=== PATIENT | female | born 1950 | race Caucasian/White ===

== ENCOUNTER → 2018-05-01 | Outpatient (CLI) | payer OTHER ==
[~2018-05-01] MED LIST: GADOBUTROL 10 ML VIAL IVP ONE
== END ==
LOC: FIMAGING 04-30 13:23
PROVIDERS: ATTEND Ophthalmology
DX: H53.2 Diplopia (principal)
CPT/HCPCS: 70553; A9585; 82565-PO

== ENCOUNTER → 2018-05-31 | Outpatient (CLI) | payer OTHER | LOC: FIMAGING 17:57 | DX: H05.00 Unspecified acute inflammation of orbit (principal) | CPT/HCPCS: 70543; A9585 ==

== ENCOUNTER → 2018-06-09 | Outpatient (CLI) | payer OTHER ==
[~2018-06-09] MED LIST changes: -GADOBUTROL 10 ML VIAL IVP ONE; +IOPAMIDOL (ISOVUE-300) 100 ML BTL ONE
== END ==
LOC: FIMAGING 12:54
DX: H05.89 Other disorders of orbit (principal); K76.9 Liver disease, unspecified; M85.89 Other specified disorders of bone density and structure, multiple sites; D30.00 Benign neoplasm of unspecified kidney
CPT/HCPCS: 71270; 74178; Q9967

== ENCOUNTER 2018-07-12 18:30 | Inpatient (IN) | payer OTHER ==
[2018-07-12] MEDS ORDERED: NS 1,000 ML IV ONE (18:56)
--- NOTE | 2018-07-12 18:57 | EDPHY ---
H & P Stated Complaint: SOB/PE ON CTA TODAY Time Seen by Provider: 07/12/18 18:57 HPI/ROS: HPI CHIEF COMPLAINT: Pulmonary embolism on CT angiogram today. HISTORY OF PRESENT ILLNESS: This is a 67-year-old female presents to the emergency room, shortness of breath, patient reports to me she has been having shortness of breath for the past week. She had a CT angiogram today that showed a pulmonary embolism. Bilaterally. She presents emergency room stating that she has felt short of breath for the past week. She did increase her home oxygen from 2 L to 3-4 L. Past Medical History: Lung cancer, tumor behind left eye blood loss of vision, COPD Past Surgical History: No recent surgery Social History: Denies daily use drugs alcohol or tobacco use. Family History: Noncontributory ROS REVIEW OF SYSTEMS: 10 Systems were reviewed and negative with the exception of the elements mentioned in the history of present illness. Exam Constitutional nontoxic, elderly, triage nursing summary reviewed, vital signs reviewed, awake/alert. Eyes patient is loss of vision left eye due to a tumor. HENT normal inspection, atraumatic, moist mucus membranes, no epistaxis, neck supple/ no meningismus, no raccoon eyes. Respiratory clear to auscultation bilaterally, normal breath sounds, no respiratory distress, no wheezing. Cardiovascular rate normal, regular rhythm, no murmur, no edema, distal pulses normal. Gastrointestinal soft, non-tender, no rebound, no guarding, normal bowel sounds, no distension, no pulsatile mass. Genitourinary no CVA tenderness. Musculoskeletal no midline vertebral tenderness, full range of motion, no calf swelling, no tenderness of extremities, no meningismus, good pulses, neurovascularly intact. Skin pink, warm, & dry, no rash, skin atraumatic. Neurologic awake, alert and oriented x 3, AAOx3, moves all 4 extremities equally, motor intact, sensory intact, CN II-XII intact, normal cerebellar, normal vision, normal speech. Psychiatric normal mood/affect. Heme/Lymph/Immune no lymphadenopathy. Differential Diagnosis: Includes but is not limited to in a particular order pneumonia, bilateral pulmonary embolism, pulmonary infarct Medical Decision Making: Plan for this patient full conveyor monitor, supplemental oxygen, IV establishment, blood cultures, she is not on any anticoagulation. Will start on heparin infusion for P E. Patient need to be admitted the hospital. Re-evaluation: EKG interpretation by me on record in [facility] system. Impression time of EKG 1901, sinus tach 102 without any signs of acute ischemia. 1911: CT angiogram was reviewed from earlier today shows bilateral pulmonary emboli. Right lung infarct, right lung consolidation. 1953: Patient remains hemodynamically stable. Spoke with the hospitalist service for admission reason for admission PE, pneumonia. Patient has been given Rocephin and azithro, as well as started on heparin drip. Spoke with Dr. Anderson agrees to admit. Patient stable for PCU admission. Source: Patient - Personal History Current Tetanus Diphtheria and Acellular Pertussis (TDAP): Yes - Medical/Surgical History Hx Asthma: No Hx Chronic Respiratory Disease: Yes Hx Diabetes: Yes Hx Cardiac Disease: No Hx Renal Disease: No Hx Cirrhosis: No Hx Alcoholism: No Hx HIV/AIDS: No Hx Splenectomy or Spleen Trauma: No Other PMH: PE/COPD/PNA. ADENOCARCINOMA BEHIND EYE TUMOR - Social History Smoking Status: Current every day smoker Constitutional: Initial Vital Signs Temperature (C) 36.6 C 07/12/18 18:35 Heart Rate 111 H 07/12/18 18:35 Respiratory Rate 19 07/12/18 18:35 Blood Pressure 108/61 07/12/18 18:35 O2 Sat (%) 93 07/12/18 18:35 O2 Delivery Mode Nasal Cannula O2 (L/minute) 4 Allergies/Adverse Reactions: No Known Allergies Allergy (Unverified 07/12/18 18:34) Home Medications: Medication Instructions Recorded Acetaminophen [Tylenol 325mg (*)] 650 mg PO Q6 PRN 07/12/18 Citalopram [CeleXA] 20 mg PO HS 07/12/18 Ergocalciferol [Vitamin D2 (*)] 50,000 unit PO MCPHERSON@0900 07/12/18 oxyCODONE HCL [Oxycodone HCl] 5 - 10 mg PO Q4 PRN 07/12/18 Medical Decision Making - Data Points Laboratory Results: Laboratory Results 07/12/18 19:15 07/12/18 19:15 Medications Given: Albuterol/Ipratropium (Duoneb) 3 ml IH QID JUANITO Stop: 01/09/19 05:59 Last Admin: 07/13/18 10:10 Dose: 3 ml Citalopram Hydrobromide (Celexa) 20 mg PO HS JUANITO Stop: 01/08/19 22:29 Last Admin: 07/12/18 22:32 Dose: 20 mg Oxycodone HCl (Oxycodone Ir) 5 - 10 mg PO Q4 PRN PRN Reason: SEVERE PAIN Stop: 07/22/18 21:26 Last Admin: 07/13/18 10:35 Dose: 5 mg Discontinued Medications Sodium Chloride (Ns) 1,000 mls @ 0 mls/hr IV EDNOW ONE; Wide Open PRN Reason: Protocol Stop: 07/12/18 18:57 Last Admin: 07/12/18 19:34 Dose: 1,000 mls Heparin Sodium (Porcine) (Heparin 50 Units/Ml (Premix)) 500 mls @ 0 mls/hr IV EDNOW ONE; Per Protocol PRN Reason: Protocol Stop: 07/12/18 19:09 Last Admin: 07/12/18 19:42 Dose: 500 mls Azithromycin 500 mg/ Sodium (Chloride) 255 mls @ 255 mls/hr IV EDNOW ONE PRN Reason: Protocol Stop: 07/12/18 20:11 Last Admin: 07/12/18 20:19 Dose: 255 mls Ceftriaxone Sodium/Dextrose (Rocephin 1 Gm (Premix)) 50 mls @ 100 mls/hr IV EDNOW ONE PRN Reason: Protocol Stop: 07/12/18 19:41 Last Admin: 07/12/18 19:25 Dose: 50 mls Potassium Chloride (Klor-Con) 40 meq PO ONCE ONE PRN Reason: Protocol Stop: 07/13/18 09:46 Last Admin: 07/13/18 09:42 Dose: 40 meq Point of Care Test Results: Chemistry 07/12/18 19:07 POC Troponin I 0.08 ng/mL ng/mL (0.00-0.08) Departure - Departure Disposition: [facility] Acute Clinical Impression: Pulmonary embolism Qualifiers: Pulmonary embolism type: other Chronicity: acute Acute cor pulmonale presence: without acute cor pulmonale Qualified Code(s): I26.99 - Other pulmonary embolism without acute cor pulmonale Pneumonia Qualifiers: Pneumonia type: due to unspecified organism Laterality: bilateral Lung location : unspecified part of lung Qualified Code(s): J18.9 - Pneumonia, unspecified organism Condition: Fair
[2018-07-12] MEDS ORDERED: HEPARIN/DEXTROSE 500 ML IV ONE (19:08)
[2018-07-12] MEDS ORDERED: AZITHROMYCIN IV 500 MG in NS 250 ML IV ONE (19:12)
[2018-07-12 19:26] LABS: PLATELET COUNT 233 10^3/uL (150-400)
[2018-07-12 19:34] LABS: INR 1.24 (0.83-1.16); PROTIME(PATIENT) 15.8 SEC (12.0-15.0)
[2018-07-12] MEDS ORDERED: ACETAMINOPHEN 325 MG TAB PO PRN (19:55)
[2018-07-12] MEDS ORDERED: HEPARIN 10,000 UNIT/10 ML MDV (1,000 UNIT/ML) IVP PRN (19:55)
[2018-07-12] MEDS ORDERED: oxyCODONE IR 5 MG TAB PO PRN (19:55)
[2018-07-12] MEDS ORDERED: HYDROCODONE/APAP 5/325 TAB PO PRN (19:55)
[2018-07-12] MEDS ORDERED: HEPARIN/DEXTROSE 500 ML IV SCH (20:00)
[2018-07-12] MEDS ORDERED: CITALOPRAM 20 MG TAB ONE (22:28)
[2018-07-12] MEDS: CITALOPRAM 20 MG TAB PO SCH (22:32)
[2018-07-12] MEDS: oxyCODONE IR 5 MG TAB PO PRN (22:32)
--- NOTE | 2018-07-12 22:35 | CPEKG ---
Test Reason : OPEN Blood Pressure : / mmHG Vent. Rate : 102 BPM Atrial Rate : 102 BPM P-R Int : 165 ms QRS Dur : 075 ms QT Int : 343 ms P-R-T Axes : 077 059 050 degrees QTc Int : 447 ms Sinus tachycardia Probable left atrial enlargement Confirmed by Antelmo Ayon ([id number]) on 07/12/2018 10:34:23 PM Referred By: Confirmed By:Antelmo Ayon
[2018-07-12] MEDS ORDERED: ALBUTEROL 3 ML DEYVIAL IH PRN (23:12)
--- NOTE | 2018-07-12 23:12 | PDGENHP ---
History and Physical - Chief Complaint SOB - History of Present Illness 67 yo female with recent diagnosis of lung cancer presents to ED after CT at [facility] showed b/l PE. She was found to have lung cancer after she developed right eye pain and vision change and imaging revealed an orbital mass, biopsy of which revealed metastatic lesion from lung cancer. CT chest confirmed large mass posterior to the right hilum and right lung base with extensive osseous mets. Abdomen CT was suspicious for hepatic mets as well. She had an outpatient appointment with Dr. Callejas at [facility] today and on arrival was found to be hypoxic and tachycardic, thus was sent for CTA, which revealed b/l PE. She was sent to ED for admission. She admits to increasing shortness of breath over past few weeks. She has a h/o COPD and is followed by pulmonology. She recently tried to quit smoking and has been off cigarettes for a week. She normally uses 2 LPM O2, but has noticed over the past few days, she is requiring more O2. She also endorses weight loss and poor appetite. +cough, minimally productive. No fevers or chills. No chest pain. In the ED, a heparin drip is started. Blood cultures were drawn and she received IV ceftriaxone and azithromycin. She is admitted for further management. History Information - Allergies/Home Medication List Allergies/Adverse Reactions: No Known Allergies Allergy (Unverified 07/12/18 18:34) Home Medications: Acetaminophen [Tylenol 325mg (*)] 650 mg PO Q6 PRN 07/12/18 [Last Taken 07/11/18 ] Citalopram [CeleXA] 20 mg PO HS 07/12/18 [Last Taken 07/11/18] Ergocalciferol [Vitamin D2 (*)] 50,000 unit PO MCPHERSON@0900 07/12/18 [Last Taken Unknown] oxyCODONE HCL [Oxycodone HCl] 5 - 10 mg PO Q4 PRN 07/12/18 [Last Taken 07/12/18 16:00] I have personally reviewed and updated: family history, medical history, social history, surgical history - Past Medical History COPD Additional medical history: Chronic hypoxemic respiratory failure - 2 LPM baseline O2. Depression. 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 06/2018 - Surgical History Reports: appendectomy, hernia repair - Family History Positive for: cancer - Social History Smoking Status: Current every day smoker Alcohol Use: Occasionally Drug Use: None Additional social history: Lives independently, currently daughter is staying with her Review of Systems Review of Systems: ROS: 10pt was reviewed & negative except for what was stated in HPI & below Physical Exam Physical Exam: Temp Pulse Resp BP Pulse Ox 36.9 C 98 18 111/73 97 07/12/18 19:45 07/12/18 19:45 07/12/18 19:45 07/12/18 19:45 07/12/18 19:45 Constitutional: no apparent distress Eyes: PERRL Ears, Nose, Mouth, Throat: moist mucous membranes Cardiovascular: regular rate and rhythym Respiratory: no respiratory distress, reduced air movement, inspiratory crackles Gastrointestinal: normoactive bowel sounds, soft, non-tender abdomen Skin: warm Musculoskeletal: full muscle strength Neurologic: AAOx3 Psychiatric: interacting appropriately Lab Data & Imaging Review 07/12/18 19:15 07/12/18 19:15 WBC 11.97 10^3/uL (3.80-9.50) H 07/12/18 19:15 RBC 3.55 10^6/uL (4.18-5.33) L 07/12/18 19:15 Hgb 11.0 g/dL (12.6-16.3) L 07/12/18 19:15 Hct 32.8 % (38.0-47.0) L 07/12/18 19:15 MCV 92.4 fL (81.5-99.8) 07/12/18 19:15 MCH 31.0 pg (27.9-34.1) 07/12/18 19:15 MCHC 33.5 g/dL (32.4-36.7) 07/12/18 19:15 RDW 15.8 % (11.5-15.2) H 07/12/18 19:15 Plt Count 233 10^3/uL (150-400) 07/12/18 19:15 MPV 11.6 fL (8.7-11.7) 07/12/18 19:15 Neut % (Auto) Not Reported 07/12/18 19:15 Lymph % (Auto) Not Reported 07/12/18 19:15 [place] % (Auto) Not Reported 07/12/18 19:15 Eos % (Auto) Not Reported 07/12/18 19:15 Baso % (Auto) Not Reported 07/12/18 19:15 Nucleat RBC Rel Count Not Reported 07/12/18 19:15 Absolute Neuts (auto) Not Reported 07/12/18 19:15 Absolute Lymphs (auto) Not Reported 07/12/18 19:15 Absolute Monos (auto) Not Reported 07/12/18 19:15 Absolute Eos (auto) Not Reported 07/12/18 19:15 Absolute Basos (auto) Not Reported 07/12/18 19:15 Absolute Nucleated RBC Not Reported 07/12/18 19:15 Immature Gran % Not Reported 07/12/18 19:15 Seg Neutrophils % 76.0 % 07/12/18 19:15 Band Neutrophils % 4.0 % 07/12/18 19:15 Lymphocytes % 9.0 % 07/12/18 19:15 Monocytes % 7.0 % 07/12/18 19:15 Eosinophils % 1.0 % 07/12/18 19:15 Basophils % 0.0 % 07/12/18 19:15 Metamyelocytes % 0.0 % 07/12/18 19:15 Myelocytes % 3.0 % 07/12/18 19:15 Promyelocytes % 0.0 % 07/12/18 19:15 Blast Cells % 0.0 % 07/12/18 19:15 Immature Gran # Not Reported 07/12/18 19:15 Absolute Seg Neuts 9.10 10^/uL (1.70-6.50) H 07/12/18 19:15 Absolute Band Neuts 0.48 10^3/uL (0.00-0.70) 07/12/18 19:15 Absolute Lymphocytes 1.08 10^3/uL (1.00-3.00) 07/12/18 19:15 Absolute Monocytes 0.84 10^3/uL (0.30-0.80) H 07/12/18 19:15 Absolute Eosinophils 0.12 10^3/uL (0.03-0.40) 07/12/18 19:15 Absolute Basophils 0.00 10^3/uL (0.02-0.10) L 07/12/18 19:15 Absolute Metamyelocyte 0.00 10^3/mL (0.00-0.00) 07/12/18 19:15 Absolute Myelocytes 0.36 10^3/mL (0.00-0.00) H 07/12/18 19:15 Absolute Promyelocytes 0.00 10^3/uL (0.00-0.00) 07/12/18 19:15 Absolute Plasma Cells 0.00 10^3/uL (0.00-0.00) 07/12/18 19:15 Absolute Blast Cells 0.00 10^3/uL (0.00-0.00) 07/12/18 19:15 Plasma Cells % 0.0 % 07/12/18 19:15 Platelet Estimate ADEQUATE (ADEQ) 07/12/18 19:15 Polychromasia 1+ H 07/12/18 19:15 Microcytic Cells 1+ H 07/12/18 19:15 Oval Macrocytes 1+ H 07/12/18 19:15 PT 15.8 SEC (12.0-15.0) H 07/12/18 19:15 INR 1.24 (0.83-1.16) H 07/12/18 19:15 APTT 25.2 SEC (23.0-38.0) 07/12/18 19:15 VBG Lactic Acid 1.8 mmol/L (0.7-2.1) 07/12/18 19:15 Sodium 135 mEq/L (135-145) 07/12/18 19:15 Potassium 3.4 mEq/L (3.3-5.0) 07/12/18 19:15 Chloride 95 mEq/L (97-110) L 07/12/18 19:15 Carbon Dioxide 32 mEq/l (22-31) H 07/12/18 19:15 Anion Gap 8 mEq/L (8-16) 07/12/18 19:15 BUN 9 mg/dL (7-23) 07/12/18 19:15 Creatinine 0.6 mg/dL (0.6-1.0) 07/12/18 19:15 Estimated GFR > 60 07/12/18 19:15 Glucose 160 mg/dL (70-100) H 07/12/18 19:15 Calcium 9.1 mg/dL (8.5-10.4) 07/12/18 19:15 Magnesium 1.9 mg/dL (1.6-2.3) 07/12/18 19:15 Total Bilirubin 1.0 mg/dL (0.1-1.4) 07/12/18 19:15 Conjugated Bilirubin 0.4 mg/dL (0.0-0.5) 07/12/18 19:15 Unconjugated Bilirubin 0.6 mg/dL (0.0-1.1) 07/12/18 19:15 AST 27 IU/L (14-46) 07/12/18 19:15 ALT 33 IU/L (9-52) 07/12/18 19:15 Alkaline Phosphatase 294 IU/L (38-126) H 07/12/18 19:15 POC Troponin I 0.08 ng/mL (0.00-0.08) 07/12/18 19:07 NT-Pro-B Natriuret Pep 722 pg/mL (0-125) H 07/12/18 19:15 Total Protein 5.9 g/dL (6.3-8.2) L 07/12/18 19:15 Albumin 3.2 g/dL (3.5-5.0) L 07/12/18 19:15 Visualized and Interpreted Chest x-ray results: Yes Chest X-Ray results: infiltrate Visualized and Interpreted EKG results: Yes EKG Interpretation: Positive for: normal sinsus rhythm Assessment & Plan Assessment: Acute on chronic hypoxemic respiratory failure 2/2 acute b/l PE - R>L. Baseline O2 2 LPM, on 4 LPM here. No hypotension or evidence of right heart strain on EKG. 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
[2018-07-13] MEDS: IPRATROPIUM/ALBUTEROL 3 ML DEYVIAL IH SCH ×4 (06:10→20:51)
[2018-07-13 06:11] LABS: PLATELET COUNT 198 10^3/uL (150-400)
[2018-07-13] MEDS: oxyCODONE IR 5 MG TAB PO PRN ×6 (06:34→22:17)
[2018-07-13] MEDS ORDERED: PROTOCOL POTASSIUM 1 DOSE MISC PRN (08:21)
[2018-07-13] MEDS ORDERED: POTASSIUM CL 10 MEQ TAB PO ONE ×2 (09:14→09:45)
--- NOTE | 2018-07-13 09:52 | HOSPPROG ---
Hospitalist Progress Note Assessment/Plan: Acute on chronic hypoxemic respiratory failure 2/2 acute b/l PE - R>L. Baseline O2 2 LPM, on 4 LPM here. No hypotension or evidence of right heart strain on EKG. 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, extensive osseous mets and possible hepatic mets - s/p biopsy of right orbit with post-op swelling and blindness -oncology consultation this am -pain control, cont home oxycodone -Will place Palliative care consult given Stage 4 disease COPD - 2 LPM O2 at baseline, no e/o acute flare -duonebs QID plus prn albuterol nebs -no indication for steroids at this time Depression - cont SSRI Full code DVT PPLX - heparin Dispo - inpt, anticipate >48 hrs hospitalization for ongoing management of PE and lung cancer Subjective: Patient reports mild SOB this AM Objective: Vital Signs Temp Pulse Resp BP Pulse Ox 36.9 C 92 18 108/58 L 90 L 07/13/18 07:57 07/13/18 07:57 07/13/18 07:57 07/13/18 07:57 07/13/18 07:57 Laboratory Results 07/13/18 02:54 07/13/18 02:54 07/12/18 07/13/18 07/14/18 05:59 05:59 05:59 Intake Total 1504 Output Total 0 Balance 1504 PT 15.8 SEC (12.0-15.0) H 07/12/18 19:15 INR 1.24 (0.83-1.16) H 07/12/18 19:15 - Physical Exam Constitutional: no apparent distress Eyes: PERRL Ears, Nose, Mouth, Throat: moist mucous membranes Cardiovascular: regular rate and rhythym Respiratory: reduced air movement, rhonchi Gastrointestinal: normoactive bowel sounds, soft, non-tender abdomen Genitourinary: no bladder fullness Skin: warm Musculoskeletal: no muscle tenderness Neurologic: AAOx3 Psychiatric: interacting appropriately ICD10 Worksheet Patient Problems: Problems Problem Status Onset Pneumonia Acute Pulmonary embolism Acute
--- NOTE | 2018-07-13 13:48 | PDCONSULT ---
[facility] Note: Hematology Oncology consultation note Reason for consultation: New pulmonary emboli in the setting a non-small cell lung cancer Requesting provider: Dr. Bharath Quiroz History of present illness: Ana is a 67-year-old female with history of metastatic NSCLC who was admitted for pulmonary embolism. She initially presented in March of this year with symptoms of headache and double vision. She eventually had an MRI of the orbits in May of 2018 a demonstrated a mass in the left clivus. She had a left orbital MRI in May demonstrated an adenocarcinoma TTF 1 was faintly positive. She underwent CT of the chest that demonstrated a mass in the right lower lobe as well as metastatic disease to the bone. She continued to have decreased vision within the left eye and has completed palliative radiation. She has seen Dr. Callejas and the plan was initiating her on chemotherapy with carboplatin, pemetrexed and keytruda. Over the course of the last week she has had worsening of her baseline shortness of breath. She uses 2 L nasal cannula oxygen at home. Her shortness of breath continued. She had a CT of the chest done on 07/12/2018 a demonstrated bilateral PE embolism. She had no lower extremity edema. She was admitted and placed on anticoagulation. She also has been treated for possible pneumonia. 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 She does have a history of smoking. No alcohol. Family history: Sister with history of breast cancer. Mother with history of breast cancer. Father with heart disease. Allergies: No known drug allergy Medications: Reviewed in the electronic medical record Review of systems: 12 point review of systems obtained otherwise negative Physical examination Temp Pulse Resp BP Pulse Ox 36.6 C 121 H 16 95/50 L 93 07/13/18 11:24 07/13/18 11:24 07/13/18 11:24 07/13/18 11:24 07/13/18 11:24 O2 (L/minute) 4 General: Pleasant-appearing female appears in no acute distress HEENT: Oropharynx is clear 5 L nasal cannula, left eye with no vision. Right eye is intact. Pulmonary: Decreased breath sounds at the right base otherwise good air entry Cardiovascular: Regular in rhythm Abdomen: Soft nontender nondistended bowel sounds are present Skin: No skin lesions Lymph nodes: No lymphadenopathy Extremities: No cyanosis clubbing or edema Psych: Appropriate affect Neuro: Motor and sensation intact . WBC 9.52 10^3/uL (3.80-9.50) H 07/13/18 02:54 RBC 2.91 10^6/uL (4.18-5.33) L 07/13/18 02:54 Hgb 9.0 g/dL (12.6-16.3) L 07/13/18 02:54 Hct 26.7 % (38.0-47.0) L 07/13/18 02:54 MCV 91.8 fL (81.5-99.8) 07/13/18 02:54 MCH 30.9 pg (27.9-34.1) 07/13/18 02:54 MCHC 33.7 g/dL (32.4-36.7) 07/13/18 02:54 RDW 15.9 % (11.5-15.2) H 07/13/18 02:54 Plt Count 198 10^3/uL (150-400) 07/13/18 02:54 MPV 11.9 fL (8.7-11.7) H 07/13/18 02:54 Neut % (Auto) 75.3 % (39.3-74.2) H 07/13/18 02:54 Lymph % (Auto) 11.9 % (15.0-45.0) L 07/13/18 02:54 [place] % (Auto) 8.7 % (4.5-13.0) 07/13/18 02:54 Eos % (Auto) 1.2 % (0.6-7.6) 07/13/18 02:54 Baso % (Auto) 0.5 % (0.3-1.7) 07/13/18 02:54 Nucleat RBC Rel Count 0.0 % (0.0-0.2) 07/13/18 02:54 Absolute Neuts (auto) 7.17 10^3/uL (1.70-6.50) H 07/13/18 02:54 Absolute Lymphs (auto) 1.13 10^3/uL (1.00-3.00) 07/13/18 02:54 Absolute Monos (auto) 0.83 10^3/uL (0.30-0.80) H 07/13/18 02:54 Absolute Eos (auto) 0.11 10^3/uL (0.03-0.40) 07/13/18 02:54 Absolute Basos (auto) 0.05 10^3/uL (0.02-0.10) 07/13/18 02:54 Absolute Nucleated RBC 0.00 10^3/uL (0-0.01) 07/13/18 02:54 Immature Gran % 2.4 % (0.0-1.1) H 07/13/18 02:54 Seg Neutrophils % 76.0 % 07/12/18 19:15 Band Neutrophils % 4.0 % 07/12/18 19:15 Lymphocytes % 9.0 % 07/12/18 19:15 Monocytes % 7.0 % 07/12/18 19:15 Eosinophils % 1.0 % 07/12/18 19:15 Basophils % 0.0 % 07/12/18 19:15 Metamyelocytes % 0.0 % 07/12/18 19:15 Myelocytes % 3.0 % 07/12/18 19:15 Promyelocytes % 0.0 % 07/12/18 19:15 Blast Cells % 0.0 % 07/12/18 19:15 Immature Gran # 0.23 10^3/uL (0.00-0.10) H 07/13/18 02:54 Absolute Seg Neuts 9.10 10^/uL (1.70-6.50) H 07/12/18 19:15 Absolute Band Neuts 0.48 10^3/uL (0.00-0.70) 07/12/18 19:15 Absolute Lymphocytes 1.08 10^3/uL (1.00-3.00) 07/12/18 19:15 Absolute Monocytes 0.84 10^3/uL (0.30-0.80) H 07/12/18 19:15 Absolute Eosinophils 0.12 10^3/uL (0.03-0.40) 07/12/18 19:15 Absolute Basophils 0.00 10^3/uL (0.02-0.10) L 07/12/18 19:15 Absolute Metamyelocyte 0.00 10^3/mL (0.00-0.00) 07/12/18 19:15 Absolute Myelocytes 0.36 10^3/mL (0.00-0.00) H 07/12/18 19:15 Absolute Promyelocytes 0.00 10^3/uL (0.00-0.00) 07/12/18 19:15 Absolute Plasma Cells 0.00 10^3/uL (0.00-0.00) 07/12/18 19:15 Absolute Blast Cells 0.00 10^3/uL (0.00-0.00) 07/12/18 19:15 Plasma Cells % 0.0 % 07/12/18 19:15 Platelet Estimate ADEQUATE (ADEQ) 07/12/18 19:15 Polychromasia 1+ H 07/12/18 19:15 Microcytic Cells 1+ H 07/12/18 19:15 Oval Macrocytes 1+ H 07/12/18 19:15 PT 15.8 SEC (12.0-15.0) H 07/12/18 19:15 INR 1.24 (0.83-1.16) H 07/12/18 19:15 APTT 25.2 SEC (23.0-38.0) 07/12/18 19:15 Heparin Anti-Xa, Unfract 0.53 IU/mL (0.32-0.67) 07/13/18 08:15 VBG Lactic Acid 1.8 mmol/L (0.7-2.1) 07/12/18 19:15 Sodium 136 mEq/L (135-145) 07/13/18 02:54 Potassium 2.9 mEq/L (3.3-5.0) L 07/13/18 02:54 Chloride 100 mEq/L (97-110) 07/13/18 02:54 Carbon Dioxide 33 mEq/l (22-31) H 07/13/18 02:54 Anion Gap 3 mEq/L (8-16) L 07/13/18 02:54 BUN 6 mg/dL (7-23) L 07/13/18 02:54 Creatinine 0.5 mg/dL (0.6-1.0) L 07/13/18 02:54 Estimated GFR > 60 07/13/18 02:54 Glucose 150 mg/dL (70-100) H 07/13/18 02:54 Calcium 8.4 mg/dL (8.5-10.4) L 07/13/18 02:54 Magnesium 1.9 mg/dL (1.6-2.3) 07/12/18 19:15 Total Bilirubin 0.7 mg/dL (0.1-1.4) 07/13/18 02:54 Conjugated Bilirubin 0.4 mg/dL (0.0-0.5) 07/12/18 19:15 Unconjugated Bilirubin 0.6 mg/dL (0.0-1.1) 07/12/18 19:15 AST 21 IU/L (14-46) 07/13/18 02:54 ALT 33 IU/L (9-52) 07/13/18 02:54 Alkaline Phosphatase 227 IU/L (38-126) H 07/13/18 02:54 POC Troponin I 0.08 ng/mL (0.00-0.08) 07/12/18 19:07 NT-Pro-B Natriuret Pep 722 pg/mL (0-125) H 07/12/18 19:15 Total Protein 5.1 g/dL (6.3-8.2) L 07/13/18 02:54 Albumin 2.5 g/dL (3.5-5.0) L 07/13/18 02:54 Assessment plan: Ana is a very pleasant 67-year-old female with history of metastatic non-small cell lung cancer who was admitted for pulmonary emboli 1. Acute pulmonary embolism: She is currently receiving heparin drip. She did have a slight decrease in her hemoglobin but some of this might be dilutional as all of her counts have decreased. She has no bleeding symptoms. Her creatinine is normal. I would recommend anticoagulation with either Lovenox or apixaban. Will review her options at time of discharge. 2. Pneumonia: She currently is receiving antibiotics. 3. Hypoxic respiratory failure: She relies on 2 L at home. She is up to 5 L. This is secondary to 1., 2. And her underlying COPD. 4. Non-small cell lung cancer, metastatic: She has no targetable mutations. She will follow up with Dr. Callejas in clinic for initiation of palliative chemotherapy All questions were answered. She voiced understanding the plan.
--- NOTE | 2018-07-13 14:28 | PDMN ---
Medical Necessity Medical necessity: Pt meets IP criteria per MD & MCG [id number]; est los >2 mn for eval/tx of bilateral PEs w/acute on chronic hypoxemic respiratory failure & possible post-obstructive pneumonia w/R pleural effusion; requiring further monitoring, Oncology consult, IV Heparin, IV abx & respiratory supportive care; comorbid metastatic lung cancer, COPD; per H&P & order 07/12/18
--- NOTE | 2018-07-13 14:53 | ASMTCMCOM ---
CM Note CM Note Notes: 07/13/2018 Case Management Note Met w/pt during rounds this morning. Daughter Susan [phone] was present in the room. Pt admitted for pneumonia and pulmonary emboli in the setting of metastatic non smal cell lung cancer . Per Oncology note planning for palliative chemotherapy. Palliative Team consult with Delfino planned for . Awaiting PT eval recommendations. Of note chemo will make placement in a SNF rehab challenging. Case Management d/c poc: to be determined. Case Management to follow. Date Signed: 07/13/2018 02:52 PM Electronically Signed By:Radhika Martínez RN
[2018-07-13] MEDS ORDERED: MAGNESIUM HYDROXIDE 30 ML UDCUP PO PRN (18:34)
[2018-07-13] MEDS ORDERED: LACTULOSE 20 GM/30 ML UDCUP PO PRN (18:34)
[2018-07-13] MEDS ORDERED: POLYETHYLENE GLYCOL 3350 17 GM PKT PO PRN (18:34)
[2018-07-13] MEDS ORDERED: BISACODYL 10 MG SUPP PR PRN (18:34)
[2018-07-13] MEDS ORDERED: AZITHROMYCIN IV 500 MG in NS 250 ML IV SCH ×2 (19:00→20:00)
[2018-07-13] MEDS ORDERED: POTASSIUM CL 20 MEQ TAB PO ONE (20:35)
[2018-07-13] MEDS: BECLOMETHASONE QVAR 80 REDIHALER 120 INH/10.6 GM MDI IH SCH (21:04)
[2018-07-13] MEDS: SENNOSIDES/DOCUSATE SODIUM TAB PO SCH (21:06)
[2018-07-13] MEDS: CITALOPRAM 20 MG TAB PO SCH (21:06)
[2018-07-14] MEDS: IPRATROPIUM/ALBUTEROL 3 ML DEYVIAL IH SCH ×4 (05:17→20:52)
[2018-07-14] MEDS: oxyCODONE IR 5 MG TAB PO PRN ×4 (05:58→19:31)
[2018-07-14] MEDS ORDERED: APIXABAN 5 MG TAB PO SCH (10:15)
[2018-07-14] MEDS: SENNOSIDES/DOCUSATE SODIUM TAB PO SCH ×2 (10:25→19:32)
[2018-07-14] MEDS: APIXABAN 5 MG TAB PO SCH ×2 (10:43→19:32)
[2018-07-14] MEDS: BECLOMETHASONE QVAR 80 REDIHALER 120 INH/10.6 GM MDI IH SCH ×2 (10:49→20:53)
[2018-07-14] MEDS ORDERED: POTASSIUM CL 10 MEQ TAB PO ONE (11:01)
[2018-07-14] MEDS ORDERED: MAGNESIUM CITRATE 300 ML BOTTLE PO ONE (12:06)
--- NOTE | 2018-07-14 12:31 | PDDCSUM ---
Discharge Summary Discharge Summary: Date of Admission: 07/12/2018 Date of Discharge: 07/14/2018 Consults: Oncology Procedures: CTA Followup: Oncology, PCP Hospital Course Problem List: Acute on chronic hypoxemic respiratory failure 2/2 acute b/l PE - R>L. Baseline O2 2 LPM, on 4 LPM here. No hypotension or evidence of right heart strain on EKG. 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, extensive osseous mets and possible hepatic mets - s/p biopsy of right orbit with post-op swelling and blindness -oncology consulted, patient will f/u as OP to discuss future treatment plan -pain control, cont home oxycodone -Palliative care consulted given Stage 4 disease, will f/u as outpatient COPD - 2 LPM O2 at baseline, no e/o acute flare -duonebs QID plus prn albuterol -no indication for steroids at this time -Restarted Qvar, prescribed at time of d/c Depression - cont SSRI, prescribed Ativan for anxiety Time spent on discharge was >35 minutes with >50% of time spent on patient education and counseling
--- NOTE | 2018-07-14 14:22 | HOSPPROG ---
Hospitalist Progress Note Assessment/Plan: Acute on chronic hypoxemic respiratory failure 2/2 acute b/l PE - R>L. Baseline O2 2 LPM, on 4 LPM here. No hypotension or evidence of right heart strain on EKG. 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, extensive osseous mets and possible hepatic mets - s/p biopsy of right orbit with post-op swelling and blindness -oncology consulted, patient will f/u as OP to discuss future treatment plan -pain control, cont home oxycodone -Palliative care consulted given Stage 4 disease COPD - 2 LPM O2 at baseline, no e/o acute flare -duonebs QID plus prn albuterol nebs -no indication for steroids at this time -Restarted Qvar, will prescribed at time of d/c Depression - cont SSRI Full code DVT PPLX - heparin Dispo - inpt, anticipate >48 hrs hospitalization for ongoing management of PE and lung cancer, likely d/c tomorrow Subjective: Patient reports constipation this morning Objective: Vital Signs Temp Pulse Resp BP Pulse Ox 36.5 C 106 H 18 98/53 L 90 L 07/14/18 12:00 07/14/18 12:00 07/14/18 12:00 07/14/18 12:00 07/14/18 12:00 Laboratory Results 07/14/18 03:07 07/14/18 03:07 07/13/18 07/14/18 07/15/18 05:59 05:59 05:59 Intake Total 1504 1978 245 Output Total 0 Balance 1504 1978 245 PT 15.8 SEC (12.0-15.0) H 07/12/18 19:15 INR 1.24 (0.83-1.16) H 07/12/18 19:15 - Physical Exam Constitutional: no apparent distress, chronically ill appearing Eyes: PERRL Ears, Nose, Mouth, Throat: moist mucous membranes Cardiovascular: tachycardia Respiratory: reduced air movement Gastrointestinal: soft, non-tender abdomen Genitourinary: no bladder tenderness Skin: warm Musculoskeletal: no muscle tenderness Neurologic: AAOx3 Psychiatric: interacting appropriately ICD10 Worksheet Patient Problems: Problems Problem Status Onset Pneumonia Acute Pulmonary embolism Acute
--- NOTE | 2018-07-14 14:39 | ASMTCMCOM ---
CM Note CM Note Notes: Pts case discussed during rounds and w/ Dr. Quiroz. PT worked w/ pt today and is recommending HC. CM sat down and spoke to pts daughter Susan. Discussed HC options and palliative options. Susan would like to go w/ [facility] and [facility]. Referrals sent to both agencies. CM provided both agencies w/ Susan's number since she is the primary person to contact. [facility] is able to start Wednesday. CM to follow. Plan: [facility]; PT, RN w/ [facility] palliative Date Signed: 07/14/2018 02:38 PM Electronically Signed By:JOSE A Raines
[2018-07-14] MEDS: LORazepam 0.5 MG TAB PO PRN (15:33)
[2018-07-14] MEDS: CITALOPRAM 20 MG TAB PO SCH (19:32)
[2018-07-14] MEDS ORDERED: POTASSIUM CL 20 MEQ TAB PO ONE (20:39)
[2018-07-15] MEDS: oxyCODONE IR 5 MG TAB PO PRN ×3 (02:43→12:37)
[2018-07-15 03:54] LABS: PLATELET COUNT 202 10^3/uL (150-400)
[2018-07-15] MEDS: IPRATROPIUM/ALBUTEROL 3 ML DEYVIAL IH SCH ×2 (05:50→09:13)
[2018-07-15] MEDS: SENNOSIDES/DOCUSATE SODIUM TAB PO SCH (08:25)
[2018-07-15] MEDS: APIXABAN 5 MG TAB PO SCH (08:31)
[2018-07-15] MEDS: BECLOMETHASONE QVAR 80 REDIHALER 120 INH/10.6 GM MDI IH SCH (09:12)
[2018-07-15] MEDS ORDERED: POTASSIUM CL 10 MEQ TAB PO ONE (09:37)
[2018-07-15 11:35] VITALS: BP 106/59
[2018-07-15] MEDS: LORazepam 0.5 MG TAB PO PRN (13:18)
--- NOTE | 2018-07-15 14:29 | SOAPPROG ---
SOAP Progress Note Assessment/Plan: Assessment: This is a very pleasant 67-year-old female with history of metastatic non-small cell lung cancer is admitted for pulmonary embolism. 1. Pulmonary embolism: Agree with anticoagulation with apixaban. 2. Cancer-related pain: I will add a prescription for MS Amy. She will continue to take oxycodone as well. We reviewed the side effect profile of opiates in conjunction with benzodiazepines. We did discuss that these prescription should be taken at different times to avoid neurologic toxicity. Her and her daughter voiced understanding. 3. Anxiety disorder: I have given her prescription for lorazepam. 07/15/18 14:24 Subjective: She continues to have ongoing pain. She has requested something more long- acting given the frequency of short-acting opiates. She also has anxiety given her diagnosis and is responding well to Ativan. Otherwise no other issues Objective: Vital Signs Temp Pulse Resp BP Pulse Ox 36.6 C 102 H 18 106/59 L 90 L 07/15/18 11:34 07/15/18 11:34 07/15/18 11:34 07/15/18 11:34 07/15/18 11:34 Laboratory Results 07/15/18 03:16 07/15/18 03:16 07/14/18 07/15/18 07/16/18 05:59 05:59 05:59 Intake Total 1978 825 Balance 1978 825 PT 15.8 SEC (12.0-15.0) H 07/12/18 19:15 INR 1.24 (0.83-1.16) H 07/12/18 19:15 General: Pleasant conversant no acute distress HEENT: Left eyelid closed no vision within the left eye. Oropharynx is clear Cardiovascular: Regular rate and rhythm Pulmonary: Moving air bilaterally at extremity: no cyanosis clubbing or edema Psych: appropriate affect ICD10 Worksheet Patient Problems: Problems Problem Status Onset Pneumonia Acute Pulmonary embolism Acute
[2018-07-15] MEDS ORDERED: ALBUTEROL 60 PUFFS/8 GM MDI IH PRN (14:38)
--- NOTE | 2018-07-15 14:43 | PDIAF ---
- Diagnosis Diagnosis: B/l PE, PNA Code Status: Full Code - Medication Management Discharge Medications: Medications to Continue on Transfer Acetaminophen [Tylenol 325mg (*)] 650 mg PO Q6 PRN 07/12/18 [Last Taken 07/11/18 ] Citalopram [CeleXA 20 MG] 20 mg PO HS 07/12/18 [Last Taken 07/11/18] Ergocalciferol [Vitamin D2 (*)] 50,000 unit PO MCPHERSON@0900 07/12/18 [Last Taken Unknown] oxyCODONE HCL [Oxycodone HCl] 5 - 10 mg PO Q4 PRN 07/12/18 [Last Taken 07/12/18 16:00] Apixaban [Eliquis] 5 mg PO BID #50 tab 07/14/18 [Last Taken Unknown] Apixaban [Eliquis] 10 mg PO BID #13 tab 07/14/18 [Last Taken Unknown] Albuterol [Proventil Inhaler HFA (*)] 2 puffs IH Q4HRS PRN #5 mdi 07/15/18 [ Last Taken Unknown] Beclomethasone Qvar 80 [Qvar 80 Redihaler (*)] 1 inh IH BID #5 mdi 07/15/18 [ Last Taken Unknown] LORazepam [Ativan (*)] 0.5 mg PO Q4HRS PRN #20 tab 07/15/18 [Last Taken Unknown] levOFLOXACIN [levAQUIN (*)] 750 mg PO DAILY AT 10AM #3 tab 07/15/18 [Last Taken Unknown] Discharge Medications: Refer to the Discharge Home Medication list for PRN reason. - Orders Services needed: Physical Therapy - Follow Up Care Current Providers and Referrals: Tony Pablo MD [Primary Care Provider] - As per Instructions
--- NOTE | 2018-07-15 14:56 | ASMTLACE ---
LACE Length of stay for Answers: 3 days current admission Acuity / Level of Answers: Yes Care: Did the patient have an inpatient admission? Comorbidities - select Answers: Any tumor (including all that apply lymphoma or leukemia) Chronic pulmonary disease Diabetes (uncontrolled or controlled) Opioid dependence / Chronic pain Other Notes: Hx of PE # of Emergency department Answers: 1-2 visits in the last 6 months Social determinants Answers: Mental health diagnosis (anxiety, depression, pers onality disorders, etc.) Score: 20 Date Signed: 07/15/2018 02:51 PM Electronically Signed By:Kerline Baer RN
--- NOTE | 2018-07-15 14:57 | ASMTDCNOTE ---
Case Management Discharge Discharge Order Complete? Answers: Yes Patient to Obtain Answers: Independently Medications Transportation Arranged Answers: Family/Friends Faxed Final Orders Answers: Yes Family Notified Answers: Yes Discharge Comments Notes: Patient discharged home with daughter. [facility] will follow for home care, and [facility] will follow for Palliative care. Orders sent to each agency. Date Signed: 07/15/2018 02:52 PM Electronically Signed By:Kerline Baer RN
== END 2018-07-15 16:05 | disposition home health service (06) | DRG 175 ==
LOC: F2W 21:55
PROVIDERS: ADMIT Hospitalist; ATTEND Hospitalist
DX: I26.99 Other pulmonary embolism without acute cor pulmonale (principal); J96.21 Acute and chronic respiratory failure with hypoxia; J18.9 Pneumonia, unspecified organism; G89.3 Neoplasm related pain (acute) (chronic); C79.51 Secondary malignant neoplasm of bone; C78.7 Secondary malignant neoplasm of liver and intrahepatic bile duct; C79.49 Secondary malignant neoplasm of other parts of nervous system; Z85.118 Personal history of other malignant neoplasm of bronchus and lung; J44.9 Chronic obstructive pulmonary disease, unspecified; F41.8 Other specified anxiety disorders; Z99.81 Dependence on supplemental oxygen; Z92.3 Personal history of irradiation; F17.210 Nicotine dependence, cigarettes, uncomplicated
CPT/HCPCS: 84484-PO; 85520-90; 96365; 97116-GP; 97161-GP; G0008; G8978-GP-CI; G8979-GP-CH; G8979-GP-CI; G8980-GP-CI; J0456; J0696; J1644

== ENCOUNTER → 2018-07-12 | Outpatient (CLI) | payer OTHER ==
[~2018-07-12] MED LIST changes: +IOPAMIDOL (ISOVUE 370) 100 ML BTL IV ONE; -IOPAMIDOL (ISOVUE-300) 100 ML BTL ONE
== END ==
LOC: FIMAGING 16:37
PROVIDERS: ATTEND Internal Medicine Hematology & Oncology
DX: I26.99 Other pulmonary embolism without acute cor pulmonale (principal); J90 Pleural effusion, not elsewhere classified; C79.51 Secondary malignant neoplasm of bone
CPT/HCPCS: 71275; Q9967

== ENCOUNTER → 2018-08-05 | Outpatient (CLI) | payer OTHER | LOC: FIMAGING 11:27 | PROVIDERS: ATTEND Internal Medicine Hematology & Oncology | DX: C34.31 Malignant neoplasm of lower lobe, right bronchus or lung (principal); J91.0 Malignant pleural effusion; J98.11 Atelectasis ==

== ENCOUNTER 2018-08-22 08:48 | Emergency (ER) | payer OTHER ==
[2018-08-22] MEDS ORDERED: methylPREDNISolone SOD SUCC 125 MG/2 ML VIAL IVP ONE (08:58)
[2018-08-22] MEDS ORDERED: IPRATROPIUM/ALBUTEROL 3 ML DEYVIAL IH ONE (08:58)
[2018-08-22 09:06] LABS: PLATELET COUNT 216 10^3/uL (150-400)
[2018-08-22] MEDS ORDERED: LORazepam 2 MG/ML INJ IVP ONE ×2 (09:06→09:08)
[2018-08-22] MEDS ORDERED: LORazepam 2 MG/ML INJ ONE (09:07)
[2018-08-22] MEDS ORDERED: NS 500 ML IV ONE (09:08)
--- NOTE | 2018-08-22 09:13 | EDPHY ---
H & P Stated Complaint: SOB, low sats Time Seen by Provider: 08/22/18 08:55 HPI/ROS: CHIEF COMPLAINT: Shortness of breath, confusion Limitations: Patient unable to give any clinical history, history is through the patient's daughter HISTORY OF PRESENT ILLNESS: 67-year-old female with metastatic lung cancer and prior pulmonary embolism presents with shortness of breath. Her daughter found her on the floor this morning, confused and without her oxygen. She usually on 4 L of oxygen by nasal cannula. She was baird and ashen. On EMS arrival, oxygen saturation was in the 70s. She was placed on 100% oxygen by non- rebreather. Last chemotherapy was 3-4 days ago. Admitted in June 2018 for pulmonary embolism, now on Xarelto. Decreased oral intake, no vomiting. Patient is DNR, according to the daughter and the signed paperwork in the patient's room. No fever. REVIEW OF SYSTEMS: complete 10 point ROS reviewed and is negative except for the noted elements in the HPI - Medical/Surgical History Hx Asthma: No Hx Chronic Respiratory Disease: Yes Hx Diabetes: Yes Hx Cardiac Disease: No Hx Renal Disease: No Hx Cirrhosis: No Hx Alcoholism: No Hx HIV/AIDS: No Hx Splenectomy or Spleen Trauma: No Other PMH: PE/COPD/PNA. ADENOCARCINOMA BEHIND EYE TUMOR - Social History Smoking Status: Current every day smoker - Physical Exam Exam: General Appearance: Alert, moaning, answers some questions Eyes: Pupils equal and round, conjunctival pallor ENT, Mouth: Mucous membranes dry Neck: Normal inspection Respiratory: Lungs are clear to auscultation anteriorly Cardiovascular: Regular tachycardia Gastrointestinal: Abdomen is soft and nontender Neurological: Alert, moves all extremities, does not follow commands Skin: Warm and dry Extremities: Bilateral pedal edema Psychiatric: Anxious Constitutional: Initial Vital Signs Temperature (C) 36.8 C 08/22/18 08:51 Heart Rate 133 H 08/22/18 08:51 Respiratory Rate 24 H 08/22/18 08:51 Blood Pressure 135/84 H 08/22/18 08:51 O2 Sat (%) 100 08/22/18 08:51 O2 Delivery Mode Nasal Cannula O2 (L/minute) 5 Allergies/Adverse Reactions: No Known Allergies Allergy (Unverified 08/22/18 08:57) Home Medications: Medication Instructions Recorded Albuterol [Proventil Inhaler HFA 2 puffs IH Q4HRS PRN #5 mdi 07/15/18 (*)] Amoxicillin/Potassium Clav [Amox 7 ml PO BID #70 ml 08/22/18 Tr-K Clv 600-42.9/5 Susp] LORazepam [Ativan] 0.5 mg PO Q4H #30 tablet 08/22/18 Ondansetron Odt [Zofran Odt 4 mg 4 mg PO Q4HRS PRN #30 tab 08/22/18 (*)] morphINE [Roxanol 10 mg/0.5 ml 5 mg PO Q2 #30 ml 08/22/18 oral soln (*)] Medical Decision Making - Diagnostics EKG Interpretation: EKG interpreted by me reveals sinus tachycardia, rate 131, poor R-wave progression, no ST/T segment changes. Significant artifact present. Interpretation: Abnormal EKG Imaging Results: Imaging Impressions Chest X-Ray 08/22/18 08:50 Impression: Worsening bilateral pleural effusions, small to moderate right and small left, worsening bibasilar atelectasis, and worsening interstitial pulmonary edema versus pneumonitis. Imaging: I viewed and interpreted images myself ED Course/Re-evaluation: This patient presents with confusion and shortness of breath, 3 days after chemotherapy. Initially we placed on BiPAP, but then changed to nasal cannula 4 L. Oxygen saturation remained 93% on room air. Stat portable chest x-ray reveals bilateral pleural effusions, no definite infiltrate. I had a prolonged discussion with the patient's daughter about the patient's wishes. She has a signed DNR, but the patient's daughter who has POA, may desire that the patient be intubated or have CPR, depending on the clinical situation. Pt unable to tell me her wishes at this point. The patient's daughter wants her mother to be more comfortable, and requests Ativan. The daughter clearly understands that Ativan may compromise her mother's respiratory status, but still wishes us to proceed. Ativan 0.5 mg IV given. She was sent to CT scan for CT pulmonary angiogram. 914: I consulted Dr. Callejas, the patient's oncologist. This patient has advanced cancer, with multiple complications. He will try to come over to the emergency department to talk to the patient's daughter and the patient. 30: pt unable to lay flat for CT scan. CT scans canceled. 0935: consulted hospitalist service, pt seen by Dr. Lino in ED, planning for hospice care. Will obs pt in ED for now. Hospice consulted on this pt, and after extensive discussions, the pt and her daughter agree that hospice is the best option. Looking for inpt hospice. Plan is to transfer pt directly to hospice. The pt was transferred directly to hospice from the ED. Differential Diagnosis: Differential diagnosis includes though it is not limited to pneumonia, pneumothorax, pulmonary embolism, aortic dissection, pericarditis, acute coronary syndrome. - Data Points Laboratory Results: Laboratory Results 08/22/18 08:00 08/22/18 08:00 08/22/18 08/22/18 08/22/18 09:20 09:20 09:20 WBC RBC Hgb POC Hgb Hct POC Hct MCV MCH MCHC RDW Plt Count MPV Neut % (Auto) Lymph % (Auto) [place] % (Auto) Eos % (Auto) Baso % (Auto) Nucleat RBC Rel Count Absolute Neuts (auto) Absolute Lymphs (auto) Absolute Monos (auto) Absolute Eos (auto) Absolute Basos (auto) Absolute Nucleated RBC Immature Gran % Immature Gran # Platelet Estimate D-Dimer Puncture Site Cancelled Patient Temperature Cancelled pCO2 Cancelled pO2 Cancelled Total CO2 Cancelled ABG pH Cancelled ABG PO2/FiO2 Ratio Cancelled ABG HCO3 Cancelled ABG O2 Sat (Calculated) Cancelled ABG O2 Saturation Cancelled ABG Base Excess Cancelled VBG Lactic Acid 2.7 mmol/L H mmol/L (0.7-2.1) Total O2 Concentration Cancelled O2 Concentration % Cancelled Respiration Rate Cancelled Actual Respiration Rate Cancelled Set Respiration Rate Cancelled SIMV Cancelled Assist Control Cancelled Vent Rate Cancelled Inspiratory Time Cancelled Expiratory Pressure Cancelled Tidal Volume Cancelled End Tidal CO2 Cancelled PEEP Cancelled Inspiratory Pressure Cancelled Peak Inspir Pressure Cancelled Pressure Support Cancelled Pressure Control Cancelled CPAP Cancelled BiPAP Cancelled Mode BiPAP Cancelled Inspir/Expir Ratio Cancelled POC Sodium Sodium POC Potassium Potassium POC Chloride Chloride Carbon Dioxide Anion Gap POC BUN BUN Creatinine POC Creatinine Estimated GFR Glucose POC Glucose Calcium POC Troponin I NT-Pro-B Natriuret Pep Patient ABO/Rh A NEGATIVE Antibody Screen NEGATIVE Crossmatch IS Only See Detail 08/22/18 08/22/18 08/22/18 09:03 08:57 08:56 WBC RBC Hgb POC Hgb 8.8 gm/dL L gm/dL (12.6-16.3) Hct POC Hct 26 % L % (38-47) MCV MCH MCHC RDW Plt Count MPV Neut % (Auto) Lymph % (Auto) [place] % (Auto) Eos % (Auto) Baso % (Auto) Nucleat RBC Rel Count Absolute Neuts (auto) Absolute Lymphs (auto) Absolute Monos (auto) Absolute Eos (auto) Absolute Basos (auto) Absolute Nucleated RBC Immature Gran % Immature Gran # Platelet Estimate D-Dimer Puncture Site Patient Temperature pCO2 pO2 Total CO2 ABG pH ABG PO2/FiO2 Ratio ABG HCO3 ABG O2 Sat (Calculated) ABG O2 Saturation ABG Base Excess VBG Lactic Acid 3.1 mmol/L H mmol/L (0.7-2.1) Total O2 Concentration O2 Concentration % Respiration Rate Actual Respiration Rate Set Respiration Rate SIMV Assist Control Vent Rate Inspiratory Time Expiratory Pressure Tidal Volume End Tidal CO2 PEEP Inspiratory Pressure Peak Inspir Pressure Pressure Support Pressure Control CPAP BiPAP Mode BiPAP Inspir/Expir Ratio POC Sodium 134 mEq/L L mEq/L (135-145) Sodium POC Potassium 4.7 mEq/L mEq/L (3.3-5.0) Potassium POC Chloride 96 mEq/L L mEq/L (97-110) Chloride Carbon Dioxide Anion Gap POC BUN 13 mg/dL mg/dL (7-23) BUN Creatinine POC Creatinine 0.6 mg/dL mg/dL (0.6-1.0) Estimated GFR Glucose POC Glucose 304 mg/dL H mg/dL (70-100) Calcium POC Troponin I 0.30 ng/mL H ng/mL (0.00-0.08) NT-Pro-B Natriuret Pep Patient ABO/Rh Antibody Screen Crossmatch IS Only 08/22/18 08/22/18 08/22/18 08:00 08:00 08:00 WBC 10.98 10^3/uL H 10^3/uL (3.80-9.50) RBC 2.54 10^6/uL L 10^6/uL (4.18-5.33) Hgb 8.0 g/dL L g/dL (12.6-16.3) POC Hgb Hct 25.3 % L % (38.0-47.0) POC Hct MCV 99.6 fL fL (81.5-99.8) MCH 31.5 pg pg (27.9-34.1) MCHC 31.6 g/dL L g/dL (32.4-36.7) RDW 17.7 % H % (11.5-15.2) Plt Count 216 10^3/uL 10^3/uL (150-400) MPV 10.8 fL fL (8.7-11.7) Neut % (Auto) 93.9 % H % (39.3-74.2) Lymph % (Auto) 3.8 % L % (15.0-45.0) [place] % (Auto) 0.6 % L % (4.5-13.0) Eos % (Auto) 0.2 % L % (0.6-7.6) Baso % (Auto) 0.2 % L % (0.3-1.7) Nucleat RBC Rel Count 0.2 % % (0.0-0.2) Absolute Neuts (auto) 10.31 10^3/uL H 10^3/uL (1.70-6.50) Absolute Lymphs (auto) 0.42 10^3/uL L 10^3/uL (1.00-3.00) Absolute Monos (auto) 0.07 10^3/uL L 10^3/uL (0.30-0.80) Absolute Eos (auto) 0.02 10^3/uL L 10^3/uL (0.03-0.40) Absolute Basos (auto) 0.02 10^3/uL 10^3/uL (0.02-0.10) Absolute Nucleated RBC 0.02 10^3/uL H 10^3/uL (0-0.01) Immature Gran % 1.3 % H % (0.0-1.1) Immature Gran # 0.14 10^3/uL H 10^3/uL (0.00-0.10) Platelet Estimate TNP D-Dimer 3.15 ug/mLFEU H ug/mLFEU (0.00-0.50) Puncture Site Patient Temperature pCO2 pO2 Total CO2 ABG pH ABG PO2/FiO2 Ratio ABG HCO3 ABG O2 Sat (Calculated) ABG O2 Saturation ABG Base Excess VBG Lactic Acid Total O2 Concentration O2 Concentration % Respiration Rate Actual Respiration Rate Set Respiration Rate SIMV Assist Control Vent Rate Inspiratory Time Expiratory Pressure Tidal Volume End Tidal CO2 PEEP Inspiratory Pressure Peak Inspir Pressure Pressure Support Pressure Control CPAP BiPAP Mode BiPAP Inspir/Expir Ratio POC Sodium Sodium 134 mEq/L L mEq/L (135-145) POC Potassium Potassium 5.0 mEq/L mEq/L (3.3-5.0) POC Chloride Chloride 96 mEq/L L mEq/L (97-110) Carbon Dioxide 32 mEq/l H mEq/l (22-31) Anion Gap 6 mEq/L mEq/L (6-14) POC BUN BUN 14 mg/dL mg/dL (7-23) Creatinine 0.6 mg/dL mg/dL (0.6-1.0) POC Creatinine Estimated GFR > 60 Glucose 296 mg/dL H mg/dL (70-100) POC Glucose Calcium 8.4 mg/dL L mg/dL (8.5-10.4) POC Troponin I NT-Pro-B Natriuret Pep 1490 pg/mL H pg/mL (0-125) Patient ABO/Rh Antibody Screen Crossmatch IS Only Microbiology Results: MICROBIOLOGY 08/22/18 09:10 Nasal, Sinus - Swab Respiratory Panel (PCR) - Final No Organism Detected Medications Given: Acetaminophen (Tylenol) 650 mg PO Q4HRS PRN PRN Reason: Pain, Mild/Fever, Can Take PO Stop: 02/18/19 10:22 Last Admin: 08/22/18 11:27 Dose: 650 mg Lorazepam (Ativan Injection) 0.5 mg IVP Q4HRS PRN PRN Reason: Anxiety, Unable to Take PO Stop: 02/18/19 10:25 Last Admin: 08/22/18 13:31 Dose: 0.5 mg Morphine Sulfate (Morphine) 0.5 - 1 mg IVP Q1HR PRN PRN Reason: Pain, Severe Unable to Take PO Stop: 09/01/18 10:21 Last Admin: 08/22/18 13:23 Dose: 1 mg Discontinued Medications Albuterol/Ipratropium (Duoneb) 3 ml IH EDNOW ONE Stop: 08/22/18 08:59 Last Admin: 08/22/18 09:00 Dose: 3 ml Furosemide (Lasix Injection) 20 mg IVP ONCE ONE Stop: 08/22/18 10:23 Last Admin: 08/22/18 11:04 Dose: 20 mg Sodium Chloride (Ns) 500 mls @ 1,000 mls/hr IV EDNOW ONE PRN Reason: Protocol Stop: 08/22/18 09:37 Last Admin: 08/22/18 09:14 Dose: 500 mls Lorazepam (Ativan Injection) 0.5 mg IVP EDNOW ONE Stop: 08/22/18 09:07 Last Admin: 08/22/18 09:13 Dose: Not Given Lorazepam (Ativan Injection) 0.5 mg IVP EDNOW ONE Stop: 08/22/18 09:09 Last Admin: 08/22/18 09:14 Dose: 0.5 mg Methylprednisolone Sodium Succinate (Solu-Medrol) 125 mg IVP EDNOW ONE Stop: 08/22/18 08:59 Last Admin: 08/22/18 09:00 Dose: 125 mg Point of Care Test Results: Chemistry 08/22/18 08/22/18 08:57 08:56 POC Sodium 134 mEq/L L mEq/L (135-145) POC Potassium 4.7 mEq/L mEq/L (3.3-5.0) POC Chloride 96 mEq/L L mEq/L (97-110) POC BUN 13 mg/dL mg/dL (7-23) POC Creatinine 0.6 mg/dL mg/dL (0.6-1.0) POC Glucose 304 mg/dL H mg/dL (70-100) POC Troponin I 0.30 ng/mL H ng/mL (0.00-0.08) Blood Gas/Lactic Acid-Arterial 08/22/18 09:20 Tidal Volume Cancelled ISTAT H&H 08/22/18 08:57 POC Hgb 8.8 gm/dL L gm/dL (12.6-16.3) POC Hct 26 % L % (38-47) Departure - Departure Disposition: Home, Routine, Self-Care Clinical Impression: Dyspnea Qualifiers: Dyspnea type: shortness of breath Qualified Code(s): R06.02 - Shortness of breath Lung cancer, primary, with metastasis from lung to other site Qualifiers: Laterality: unspecified laterality Qualified Code(s): C34.90 - Malignant neoplasm of unspecified part of unspecified bronchus or lung Condition: Serious
[2018-08-22] MEDS ORDERED: IOPAMIDOL (ISOVUE 370) 100 ML BTL IV ONE (09:15)
[2018-08-22] MEDS ORDERED: FUROSEMIDE 20 MG/2 ML VIAL IVP ONE (10:22)
[2018-08-22] MEDS ORDERED: ONDANSETRON DISINTEGRATING 4 MG TAB PO PRN (10:23)
[2018-08-22] MEDS ORDERED: ACETAMINOPHEN 325 MG TAB PO PRN (10:23)
[2018-08-22] MEDS ORDERED: ONDANSETRON 4 MG/2 ML VIAL IVP PRN (10:23)
[2018-08-22] MEDS: LORazepam 2 MG/ML INJ IVP PRN ×2 (10:50→13:31)
--- NOTE | 2018-08-22 11:17 | GHP ---
DATE OF ADMISSION: 08/22/2018 PRIMARY ONCOLOGIST: Dr. Callejas. CHIEF COMPLAINT: Shortness of breath, confusion. HISTORY OF PRESENT ILLNESS: History is obtained from her daughter as patient is altered. She is a 67-year-old female with metastatic lung cancer, recent pulmonary embolism in June on Eliquis, who presented with shortness of breath. Daughter found her on the floor this morning confused without her oxygen. Unclear how long she had been without it. She is usually on 4 L by nasal cannula. She was baird and ashen. When EMS arrived, her O2 sats were in the 70s. She was placed on a non-rebreather. Last chemotherapy was 3-4 days ago. Since that time, she has had increased pain in her right leg. She has had decreased oral intake. Some nausea but no vomiting. No fevers. No cough. She had loose stools today. She was recently treated for UTI, completed 3 days. She has been using oxycodone twice a day for pain. She had previously been on MS Contin, but this made her too confused. Patient told daughter she did not want to come to the hospital, but daughter became overwhelmed and brought her here. Per daughter, feet and ankles have been more swollen in the last couple days. The patient tells me that she is short of breath now, not in pain here in the emergency room. CTA was ordered, but patient could not tolerate test. REVIEW OF SYSTEMS: I completed a 10-point review of systems per chart review and with daughter. PAST MEDICAL HISTORY: Metastatic lung cancer with disease to left orbit, bones , and liver. Her last day of chemotherapy was 3 days ago. She has been followed by [facility]. COPD, chronic hypoxemic respiratory failure, 2 L baseline, depression, recent PE. PAST SURGICAL HISTORY: Appendectomy, hernia repair. FAMILY HISTORY: Positive for cancer. SOCIAL HISTORY: She is a current smoker. Her daughter is staying with her. She is her senior teller. HOME MEDICATIONS: Oxycodone 5-10 mg q.12 hours, completed Levaquin 750 mg x3 days, Ativan 0.5 q.4 hours p.r.n., vitamin D2 50,000 units every week, Celexa 20 , Qvar, Eliquis, albuterol, Tylenol. ALLERGIES: None. PHYSICAL EXAMINATION: VITAL SIGNS: Temperature is afebrile. Blood pressure is 126/85, heart rate of 120s to 140s, respiration 20. She was 72 on room air, 93 on 6 L. GENERAL: She is pale, moaning. HEENT: Slightly dry mucous membranes. CV: Tachy, regular. +1 to 2 ankle edema. Feet are swollen. LUNGS : She is not participating in exam. GI: Soft, nontender. No grimace with palpation. : No Echavarria. MUSCULOSKELETAL: She is moving all 4 extremities. NEURO: She is not able to participate in exam. PSYCH: She answers yes and no questions. Not oriented. LABS: WBC is 10, hemoglobin 8, hematocrit 25, platelets are 216. D-dimer 3.15. Lactate is 2.7. Sodium 134, potassium 4.7, chloride 96, creatinine 0.6, glucose 304. Urine is pending. IMAGING: Chest x-ray personally reviewed by me. Increased pleural effusions bilaterally from prior in July. EKGs personally reviewed: Sinus tachycardia, poor waveform, PVC. ASSESSMENT AND PLAN: 1. Acute on chronic hypoxemic respiratory failure. Chest x-ray showing increased effusions from prior. She is not able to tolerate CTA and has been compliant with her anticoagulation. Dose IV Lasix. Echocardiogram pending. 2. Tachycardia secondary to shortness of breath or discomfort. Will give Ativan and morphine for pain and breathlessness. 3. Metastatic lung cancer: She is followed by [facility]. I had a conversation with her daughter, who is her MDPOA. MOST form states DNR. I will have [facility] come evaluate for possible discharge to hospice. Goal is to make her comfortable. 4. Recent pulmonary embolism: Eliquis at home.. 5. Normocytic anemia. H/ H are stable. No active bleeding. 6. Lactic acidosis: Likely starvation ketoacidosis. Holding off fluids now given volume overload. 7. Acute encephalopathy: Suspect due to being without oxygen. She was treated a month ago for urinary infection. We will repeat a UA here. I do not think she would be able to tolerate a CT of the head at this time. 8. Fever: here in ED. UA negative. Suspect aspiration PNA vs pneumonitis with AMS. Dose Augmentin 9. [facility] /[id number]/MODL MTDD
[2018-08-22] MEDS ORDERED: ACETAMINOPHEN 325 MG SUPP PR ONE (11:25)
[2018-08-22] MEDS ORDERED: LORazepam 0.5 MG TAB PO PRN (13:10)
[2018-08-22] MEDS ORDERED: ALBUTEROL 60 PUFFS/8 GM MDI IH PRN (13:10)
--- NOTE | 2018-08-22 13:22 | PDIAF ---
- Diagnosis Diagnosis: Acute on chronic hypoxia Code Status: Do Not Resuscitate - Medication Management Discharge Medications: electronically signed and located in the Home Medication List. - Orders Services needed: Registered Nurse Isolation Type: Droplet Isolation Diet Recommendation: no restrictions on diet Diet Texture: Regular Texture Diet - Follow Up Care Current Providers and Referrals: Patient,NotPresent [Unknown] - As per Instructions
--- NOTE | 2018-08-22 13:53 | GDS ---
PRIMARY ONCOLOGIST: Dr. Callejas. DISCHARGE DIAGNOSES: 1. Acute on chronic hypoxemic respiratory failure. 2. Tachycardia. 3. Recent pulmonary embolism. 4. Metastatic lung cancer with metastatic disease to the orbit, bones, and liver. 5. Indeterminate troponin. 6. Fever. 7. Likely aspiration pneumonitis versus pneumonia. 8. Normocytic anemia. 9. Mild hypovolemic hyponatremia. HISTORY OF PRESENT ILLNESS: Please see H and P dictated today for full history , physical exam. GOALS: The patient and daughter were visited by [facility]. Per patient' s prior advance directives, hospitalization was declined for hospice to either inpatient hospice or [facility]. Dr. Callejas with Oncology also visited family and agreed with the plan. The patient had a fever here in the emergency room. Negative respiratory panel. There is no overt opacity on pneumonia. Suspect that she aspirated. Per daughter's wish, would like to cover with antibiotics. I have discharged her on Augmentin. DISPOSITION: Patient is for discharge to hospice. NEW MEDICATIONS: 1. Roxanol. 2. Ativan. 3. Zofran. 4. Augmentin. Time spent on discharge greater than 60 minutes, coordinating with Case Management, Dr. Alarcon, in the emergency room. Additional direct care: Spent 30 minutes at bedside on advance directives and goals of care with daughter. /[id number]/MODL MTDD
--- NOTE | 2018-08-22 14:07 | ECHO ---
[email or web address] [address] [address] Main: [phone] Fax: Transthoracic Echocardiogram Name: GLORY PRUITT MR#: [id number] Study Date: 08/22/2018 Study Time: 09:53 AM Date of : 1950 Age: 67 year(s) Height: 160 cm (63 in.) Weight: 58.97 kg (130 lb.) BSA: 1.61 m2 Gender: Female Examination: Echo Indication: Shortness of breath, Lung CA, Elevated Troponins, Hx of Pleural, Pulmonary HTN Image Quality: Technically Difficult Contrast: Requested by: Ayleen Freeman BP: 131 mmHg/76 mmHg Heart Rate: Rhythm: Tachycardia Indication: Shortness of breath, Lung CA, Elevated Troponins, Hx of Pleural, Pulmonary HTN Procedure Staff Field Placement Director: Hernesto Ortiz RDCS Reading Physician: Dominic Hart MD Requesting Provider: Conclusions: Normal size left ventricle. Normal global systolic LV function. EF is 78 %. Can not exclude a small regional wall motion abnormality.. Mildly dilated right ventricle. The mitral valve is normal in appearance and function. The aortic valve is not well seen. There is no significant aortic stenosis or insufficiency by doppler.. There is a pleural effusion present. This is a limited study performed in the setting of respiratory distress. Measurements: Chambers Valvular Assessment AV/MV Valvular Assessment TV/PV Normal Normal Normal Name Value Range Name Value Range Name Value Range Ao Laura (MM): 2.0 cm (2.2 cm-3.7 MV E Vmax: 1.16 m/s ( - ) PV Vmax: 0.99 m/s (0.6 m/s-0.9 cm) m/s) IVSd (2D): 0.8 cm (0.6 cm-1.1 PV PGmax: 4 mmHg ( - ) cm) LVDd (2D): 3.4 cm (3.9 cm-5.3 cm) LVDs (2D): 1.9 cm (2.1 cm-4 cm) LVPWd (2D): 0.9 cm ( - ) LVEF (2D): 78 (>=54 %) Continued Measurements: Chambers Name Value Patient: GLORY PRUITT Study Date: 08/22/2018 Page 1 of 2 09:53 AM LADs: 2.8 cm Findings: Left Ventricle: Normal size left ventricle. No LV hypertrophy. Normal global systolic LV function. EF is 78 %. Can not exclude a small regional wall motion abnormality.. Right Ventricle: Mildly dilated right ventricle. Normal RV function. Left Atrium: The left atrium is normal in size. Right Atrium: The right atrium is normal in size. Mitral Valve: The mitral valve is normal in appearance and function. There is no mitral valve regurgitation. No mitral stenosis is present. Aortic Valve: The aortic valve is not well seen. There is no significant aortic stenosis or insufficiency by doppler.. Tricuspid Valve: The tricuspid valve is normal in appearance and function. There is no significant tricuspid valve regurgitation. Pulmonic Valve: The pulmonic valve is normal in appearance and function. Aorta: The aorta is normal. Pericardium: No pericardial effusion. There is a pleural effusion present. (No Signature Object) Patient: GLORY PRUITT Study Date: 08/22/2018 Page 2 of 2 09:53 AM D:_[id number]
[2018-08-22 15:07] VITALS: BP 87/50
--- NOTE | 2018-08-22 15:14 | CPEKG ---
Test Reason : OPEN Blood Pressure : / mmHG Vent. Rate : 131 BPM Atrial Rate : 134 BPM P-R Int : 143 ms QRS Dur : 078 ms QT Int : 316 ms P-R-T Axes : 083 124 -59 degrees QTc Int : 467 ms Sinus tachycardia Right axis deviation Probable anteroseptal infarct, old artifact present Confirmed by Ayleen Freeman ([id number]) on 08/22/2018 3:13:40 PM Referred By: Confirmed By:Ayleen Freeman
--- NOTE | 2018-08-22 15:36 | PDPCPN ---
Palliative Care Progress Note Assessment/Plan: Assessment: [facility] [address] [place] [phone] (O) [phone](F) PALLIATIVE to hospice transfer note. Hospital consultation Name: Ana Cameron Age: 67 Visit Type: Palliative to hospice transfer note. Hospital consultation Location: [facility] Date: 08/22/2018 Level of Care: Hospice Eligible DIAGNOSES: 1. Malignant Neoplasm of the Lung 2. COPD CC: HPI: Patient is a 67 year old female diagnosed with Nonsmall cell Stage IV lung cancer with metastasis to bone and liver. Per [facility] records patient also has bone and liver metastasis. The patient underwent her second cycle of chemotherapy last week. She was relatively stable for 2 days then over the last 48 hours she has had increasing confusion and agitation. She was found last night without her oxygen on. She was taken to the emergency department at [facility]. She has continued to have significant agitation and confusion. Her oxygen is now at 6 L with saturations in the low 90s. She is also febrile at 38.6. A CT scan was planned however with her significant agitation they were unable to complete the study. PMH: COPD, Home oxygen 3.25 L/min, Depression, Vitamin D deficiency, chronic hypoxia, Respiratory failure and DM. Surgeries: Appendectomy, hernia repair and . Blurry vision and headache in March 2018, suspicious lesion found , received Prednisone 1.5 months. Diagnosed with Nonsmall cell lung cancer stage IV with bone and liver mets. Radiation- 10 treatments, no benefit. Chemotherapy every 4 weeks. Bilateral PE's on Eliquis. Allergies: NKDA Family Hx: Cancer Social Hx: Smoker, occasional ETOH. Former bilingual loan processor Advance Directives: DNR- comfort measures. MDPOA: Susan Cannon- daughter Patient Goals of Care: 1. Comfort 2. Continue treatment as long as possible ACTIVE SYMPTOMS/ASSESSMENTS/RECOMMENDATIONS 1. Pain- Patient reports she is no longer taking the Morphine XR. She is only taking Tylenol between Oxycodone doses and 1 Oxycodone at night and 0.5 tablet in AM. it has been unclear whether her agitation is secondary to pain. Following several doses of morphine her agitation has subsided somewhat. No pain behaviors observed. 2. Confusion- increasing confusion over the last 48 hours. 3. Anorexia- very little food intake over the last 48 hours. 4. Shortness of breath- oxygen requirements have been stable at 3.5 L however she is now on 6 L with oxygen saturations in the low 90s. 5. Dehydration- her chest x-ray today exhibits a slight increase in pleural effusions and she has been gently diuresed while in the emergency department. 6. Prognosis: weeks to months 11. Hospice Eligibility: Yes goals aligned 12. Recommended Hospice Admitting Diagnosis: Nonsmall cell lung cancer MODIFIED [place] SYMPTOM ASSESSMENT SCALE 0-none; 1-3 mild; 4-6 moderate; 7-10 severe Unable to Respond: No Delirium: 0-none Depression: 1-3 mild Anxiety: 0- none Tiredness (fatigue): 8-10 severe Drowsiness (sleepiness): 4-6 moderate Pain: 4-6 moderate Nausea: 4-5 moderate Anorexia: 4-6 moderate Shortness of Breath: 0-none Secretions: 0-none Constipation: 4-6 moderate Symptom and side effect management: Acceptable to patient and family OBJECTIVE FINDING Palliative Performance Score: 30 FAST: N/A NYHA: N/A Wt.: Neuro: a week. Not oriented . HEENT: Normocephalic; atraumatic. Blind left eye. RESP: Regular, deep, symmetrical. No cough or wheezing. Breath sounds CTA. CV: S1/S2, regular. 1+ BLE edema. Radial and pedal pulses 2+. GI: Bowel sounds positive x 4. Abdomen soft, round MSK: Chronically ill appearing. SKIN: Dry, intact. Excoriation to right gluteal cheek not observed . LAB Data: N/A Vitals: 120, 20, 94/54, 91% on 6 L Medications: home Albuterol Proventil inhaler 2 puffs Q4 hours PRN Tylenol 650 mg Q6 hours PRN Oxycodone 5-10 mg Q4 hours PRN Citalopram 20 mg QHS Vitamin D2 26302 units weekly Metformin 500 mg BID Zyprexa 2.5 mg QHS Folic acid 1 mg daily Eliquis 5 mg BID QVAR inhaler 1 puff BID Lorazepam 0.5 mg Q4 hours PRN Sennokot-S 2 tablets BID PALLIATIVE SUMMARY: Patient is a 67 year old female who was diagnosed with Nonsmall cell lung cancer in May 2018. she received her second cycle of chemotherapy last week. Now the last 48 hours she has had significant decline with increasing confusion and agitation. Her oxygen requirements have significantly increased. She discussed with her daughter yesterday that she did not want to return to the hospital. She is now unable to make medical decisions. Her daughter Susan is her medical power of employee benefits attorney and would like to pursue hospice care for comfort measures only. PLAN: Admit to hospice for GIP level of care SQL SERVER DBA DEVELOPER: Palliative Supportive Services: Thank you for the opportunity to participate in the care of this patient. TIME SPENT: 1100 to 12:30 90 minutes >50% of the time spent counseling, educating and coordinating the above topics. Clark Correa ANP Plan: 08/22/18 15:35 Objective: Vital Signs Temp Pulse Resp BP Pulse Ox 38.3 C 112 H 20 87/50 L 96 08/22/18 15:07 08/22/18 15:07 08/22/18 15:07 08/22/18 15:07 08/22/18 15:07 08/21/18 08/22/18 08/23/18 05:59 05:59 05:59 Output Total 1000 Balance -1000 ICD10 Worksheet Patient Problems: Problems Problem Status Onset Dyspnea Acute Lung cancer, primary, with metastasis from lung to other site Acute Pneumonia Acute Pulmonary embolism Acute
--- NOTE | 2018-08-22 16:06 | ASMTCMCOM ---
CM Note CM Note Notes: Pt presented to the ED via EMS from home after being found on the floor confused and without her oxygen. Pt presented w/SOB, difficulty breathing. Pt was recently discharged from [facility] Home w/[facility]. Pt's daughter Susan Cannon and her and young child moved in with the pt to care for her. Vanna Shen and STEREO COMPILER Clark w/[facility], Dr. Lino ([facility] Medical Palliative Lead) and Delfino w/Spiritual Services arrived to the ED and discussed w/Susan re:pt discharging on Hospice vs. being admitted to the hospital. Pt's oncologist Dr Callejas also arrived to the ED and spoke w/Susan and care team. Ultimately Susan elected to have pt discharged to [facility] w/Hospice. This CM sent referrals and orders, etc. via Allscripts to and [facility]. Pt's Morphine, Ativan, Zofran, and antibiotic were filled at [facility] through [facility]. These filled Rxns and the hard copy scripts for pt's Morphine and Ativan were provided and sent with EMS to . Spoke w/Lisa at and confirmed she received all necessary information via referral. Vanna shannon/Margaret arranged transport through [facility]; this CM completed PCS. This CM called and notified Susan of pt being picked up by EMS and offered an opportunity to ride w/pt in the ambulance; Susan declined and said she would meet pt at . CM available for further assistance if needed. Date Signed: 08/22/2018 04:05 PM Electronically Signed By:Caren Balderas RN
--- NOTE | 2018-08-22 16:09 | ASDISCHSUM ---
Discharge Information Plan Status:Hospice-SNF Medically Cleared to Leave: Discharge Date: D/C Disposition:[facility] D/C Disposition:Hospice Facility Projected Discharge Date:08/22/2018 11:00 AM Transportation at D/C:ALS/BLS Discharge Delay Reason: Follow-Up Date:08/22/2018 11:00 AM Discharge Slot: Final Diagnosis: Placement Information Referral Type:*Long-Term/SNF Referral ID:[id number] Provider Name:[facility] Address 1:[address] Address 2: City:[place] Selection Factors: State:[place] Referral Type:*Hospice Referral ID:[id number] Provider Name:[facility] Address 1:[address] Phone Number: Address 2: Fax Number: [facility]:[place] Selection Factors: State:[place] Patient Contact Information Contact Name:ESTEFANIA Relationship:Daughter Address: City: Alternate Phone: State/Zip Code: Email: Financial Information Financial Class:Medicare Primary Plan Desc:MEDICARE INPATIENT Primary Plan Number:[id number] Secondary Plan Desc:[facility] Secondary Plan Number:[id number] Assessment Information [facility] CM Progress Note CM Note CM Note Notes: Pt presented to the ED via EMS from home after being found on the floor confused and without her oxygen. Pt presented w/SOB, difficulty breathing. Pt was recently discharged from [facility] Home w/[facility]. Pt's daughter Susan Cannon and her and young child moved in with the pt to care for her. Vanna Shen and MYA Rodas w/[facility], Dr. Lino ([facility] Medical Palliative Lead) and Delfino w/Spiritual Services arrived to the ED and discussed w/Susan re:pt discharging on Hospice vs. being admitted to the hospital. Pt's oncologist Dr Callejas also arrived to the ED and spoke w/Susan and care team. Ultimately Susan elected to have pt discharged to [facility] w/Hospice. This CM sent referrals and orders, etc. via Allscripts to and [facility]. Pt's Morphine, Ativan, Zofran, and antibiotic were filled at [facility] through [facility]. These filled Rxns and the hard copy scripts for pt's Morphine and Ativan were provided and sent with EMS to . Spoke w/Lisa at and confirmed she received all necessary information via referral. Vanna shannon/Margaret arranged transport through [place]; this CM completed PCS. This CM called and notified Susan of pt being picked up by EMS and offered an opportunity to ride w/pt in the ambulance; Susan declined and said she would meet pt at . CM available for further assistance if needed. Date Signed: 08/22/2018 04:05 PM Electronically Signed By:Caren Balderas RN Intervention Information
== END 2018-08-22 15:20 | disposition home or self-care (01) ==
LOC: EDUNIT# → UNDOADMIN 09:37
DX: J96.90 Respiratory failure, unspecified, unspecified whether with hypoxia or hypercapnia (principal); R00.0 Tachycardia, unspecified; I26.99 Other pulmonary embolism without acute cor pulmonale; C34.90 Malignant neoplasm of unspecified part of unspecified bronchus or lung; F17.200 Nicotine dependence, unspecified, uncomplicated; J18.9 Pneumonia, unspecified organism; C79.49 Secondary malignant neoplasm of other parts of nervous system; C78.7 Secondary malignant neoplasm of liver and intrahepatic bile duct; C79.51 Secondary malignant neoplasm of bone; D64.9 Anemia, unspecified; E87.1 Hypo-osmolality and hyponatremia; E86.9 Volume depletion, unspecified; Z79.01 Long term (current) use of anticoagulants
CPT/HCPCS: 71045; 93005; 93306; 96361; 96374; 96375; 96376; 99285; J1940; J2060; J2270; J2930; 82435-PO; 82565-PO; 82947-PO; 84132-PO; 84295-PO; 84484-PO; 84520-PO; 85014-PO; Q9967